=== PATIENT | male | born 1960 | race Two or more races ===

== ENCOUNTER 2019-06-26 11:38 | Emergency (ER) | payer OTHER ==
[~2019-06-26] VITALS: Ht 167.6 cm; Wt 73.5 kg
[~2019-06-26 11:38] MED LIST: CIPRO500 MG; ULTRACET
[2019-06-26] MEDS ORDERED: COZAAR25 MG (11:47)
[2019-06-26] MEDS ORDERED: PROPRANOLOL 60 MG (11:49)
== END 2019-06-26 14:19 | disposition home or self-care (01) ==
LOC: ER 11:38
DX: L03.114 Cellulitis of left upper limb (principal); S51.832A Puncture wound without foreign body of left forearm, initial encounter; W26.8XXA Contact with other sharp object(s), not elsewhere classified, initial encounter; Y93.89 Activity, other specified; Y92.018 Other place in single-family (private) house as the place of occurrence of the external cause; Y99.8 Other external cause status

== ENCOUNTER 2024-05-03 17:11 | Emergency (ER) | payer OTHER ==
[~2024-05-03] VITALS: Ht 167.6 cm; Wt 77.1 kg
[~2024-05-03 17:11] MED LIST changes: +COZAAR25 MG; +PROPRANOLOL 60 MG
[2024-05-03] MEDS ORDERED: BISOPROLOL-HCT1 EACH PO (17:36)
[2024-05-03] MEDS ORDERED: IBU600 MG PO (18:58)
== END 2024-05-03 19:03 | disposition home or self-care (01) ==
LOC: ER 17:14
DX: S09.8XXA Other specified injuries of head, initial encounter (principal); W19.XXXA Unspecified fall, initial encounter; Y93.89 Activity, other specified; Y92.89 Other specified places as the place of occurrence of the external cause; Y99.8 Other external cause status; I10 Essential (primary) hypertension